=== PATIENT | male | born 1960 | race Caucasian/White ===

== ENCOUNTER 2017-03-09 12:52 | Emergency (ER) | payer OTHER ==
[~2017-03-09] VITALS: Ht 175.3 cm; Wt 70.3 kg
[~2017-03-09 12:52] MED LIST: ATIVAN2 MG; BUDESONIDE0.5 GM; MAALOX525 MG/15; PRILOSEC20 MG
== END 2017-03-09 16:32 | disposition home or self-care (01) ==
LOC: ER 12:52
DX: Z48.02 Encounter for removal of sutures (principal)